=== PATIENT | male | born 1950 ===

== ENCOUNTER 2023-10-31 09:20 | Outpatient (CLI) | payer OTHER | END 2023-10-31 09:22 | disposition home or self-care (01) | LOC: SONOGRAMA 09:20 | PROVIDERS: ATTEND Pathology Anatomic Pathology & Clinical Pathology | DX: D34 Benign neoplasm of thyroid gland (principal); E06.3 Autoimmune thyroiditis; D44.0 Neoplasm of uncertain behavior of thyroid gland ==